=== PATIENT | male | born 1980 | race Caucasian/White ===

== ENCOUNTER 2016-11-10 21:12 | Emergency (ER) | payer OTHER ==
[~2016-11-10] VITALS: Ht 172.7 cm; Wt 68.0 kg
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
[2016-11-10] MEDS ORDERED: LORAZEPAM 1 MG TABLET ONE (21:56)
[2016-11-10] MEDS ORDERED: CEPHALEXIN MONOHYDRATE 500 MG CAPSULE PO ONE ×2 (21:57→22:00)
[2016-11-10] MEDS ORDERED: ONDANSETRON 4 MG TAB.RAPDIS ONE (21:57)
[2016-11-10] MEDS ORDERED: SULFAMETH/TRIMETH 800/160 MG 1 UDTAB TABLET PO ONE ×2 (21:57→22:00)
[2016-11-10] MEDS ORDERED: ONDANSETRON 4 MG TAB.RAPDIS SL ONE (22:00)
[2016-11-10] MEDS ORDERED: LORAZEPAM 1 MG TABLET PO ONE (22:00)
--- NOTE | 2016-11-10 22:11 | NUR ---
medicated patient as ordered by Dr Suarez.
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
[2016-11-10 22:25] VITALS: BP 108/67
== END 2016-11-10 22:26 ==
LOC: ER 21:14
DX: L03.113 Cellulitis of right upper limb (principal); L30.9 Dermatitis, unspecified; R00.0 Tachycardia, unspecified; F12.10 Cannabis abuse, uncomplicated; F10.10 Alcohol abuse, uncomplicated; F17.200 Nicotine dependence, unspecified, uncomplicated; G43.909 Migraine, unspecified, not intractable, without status migrainosus; J45.909 Unspecified asthma, uncomplicated; I10 Essential (primary) hypertension; Z72.0 Tobacco use; Z59.0 Homelessness
CPT/HCPCS: A4606; Q0162; Z7610

== ENCOUNTER 2016-12-03 19:31 | Emergency (ER) | payer MEDICAID ==
[~2016-12-03] VITALS: Ht 182.9 cm; Wt 83.9 kg
--- NOTE | 2016-12-03 19:42 | NUR ---
BB RA; "CHRONIC BODY PAIN" PT AOX3 RR EVEN AND UNLABORED. NO SOB NOTED. NAD NOTED. NO NVD AT THIS TIME. PT NOT DIAPHORETIC. PT WAITING FOR MD CARTER.
[2016-12-03 20:19] LABS: BASOPHILS # (AUTO) 0.1 /CMM (0.0-0.2); BASOPHILS % (AUTO) 1.2 % (0.0-2.0); EOSINOPHILS # (AUTO) 0.2 /CMM (0.0-0.7); EOSINOPHILS % (AUTO) 2.9 % (0.0-6.0); HEMATOCRIT 38 % (39-51); HEMOGLOBIN 12.7 g/dL (13.5-17.5); LYMPHOCYTES # (AUTO) 2.3 /CMM (0.8-4.8); LYMPHOCYTES % (AUTO) 30.5 % (20.0-44.0); MEAN CORPUSCULAR HEMOGLOBIN 32 PG (26.0-33.0); MEAN CORPUSCULAR HGB CONC 33 g/dl (31.0-36.0); MEAN CORPUSCULAR VOLUME 96 fL (80-96); MONOCYTES # (AUTO) 0.9 /CMM (0.1-1.30); MONOCYTES % (AUTO) 11.3 % (2.0-12.0); NEUTROPHILS # (AUTO) 4.1 /CMM (1.8-8.9); NEUTROPHILS % (AUTO) 54.1 % (43.0-81.0); PLATELET COUNT (AUTO) 171 /CMM (150-450); RDW COEFFICIENT OF VARIATION 12.6 (11.5-15.0); WHITE BLOOD COUNT (AUTO) 7.6 K/uL (4.3-11.0)
--- NOTE | 2016-12-03 20:19 | NUR ---
PT TO RADIOLOGY FOR CT.
[2016-12-03 20:27] LABS: APPEARANCE,URINE CLEAR (CLEAR); BILIRUBIN,URINE NEGATIVE (NEGATIVE); BLOOD, URINE NEGATIVE Ery/uL (NEGATIVE); COLOR,URINE YELLOW (YELLOW); KETONES,URINE NEGATIVE (NEGATIVE); LEUKOCYTE ESTERASE ,URINE TRACE (NEGATIVE); NITRITE, URINE NEGATIVE (NEGATIVE); PROTEIN,URINE NEGATIVE (NEGATIVE); UGLUCOSE NEGATIVE (NEGATIVE); UROBILINOGEN,URINE 0.2 EU/dL (0.2)
--- NOTE | 2016-12-03 20:32 | NUR ---
PT RETURNED FROM CT.
[2016-12-03 20:38] LABS: CALCIUM, SERUM 8.2 mg/dL (8.5-10.1); CREATININE 0.7 mg/dL (0.6-1.3); POTASSIUM 4.1 mmol/L (3.5-5.1)
[2016-12-03 21:07] LABS: BACTERIA,URINE Rare /HPF (None Seen); RBC,URINE 0-2 /HPF (0-2); SQUAMOUS EPITHELIAL CELL,UR Few /HPF (None Seen); WBC,URINE 0-2 /HPF (0-3)
--- NOTE | 2016-12-03 21:23 | NUR ---
D/C PT ON BEHALF OF PRIMARY NURSE VERO. Patient discharged to home in stable condition. Written and verbal after care instructions given. Patient verbalizes understanding of instruction. IV removed. Catheter intact and site benign. Pressure and 4x4 applied to site. No bleeding noted. Ambulatory with a steady gait
[2016-12-03 21:25] VITALS: BP 117/85
[2016-12-06 00:13] LABS: *NEISSERIA GONORRHOEAE NAA Negative (Negative); CHLAMYDIA TRACHOMATIS NAA Negative (Negative)
== END 2016-12-03 21:26 | disposition home or self-care (01) ==
LOC: ER 19:34
DX: N39.0 Urinary tract infection, site not specified (principal); F10.20 Alcohol dependence, uncomplicated; I10 Essential (primary) hypertension; J45.909 Unspecified asthma, uncomplicated; Z59.0 Homelessness
CPT/HCPCS: 36415; 80048-TC; 81000-TC; 85025-TC; 87491; 87591; A4606; G0480; J0696; J2405; J3490; J7030; Z7610

== ENCOUNTER 2016-12-03 23:46 | Emergency (ER) | payer OTHER, MEDICAID ==
[~2016-12-03] VITALS: Ht 177.8 cm; Wt 81.6 kg
[2016-12-03 23:51] VITALS: BP 119/71
== END 2016-12-04 00:31 ==
LOC: ER 23:49
DX: Z02.89 Encounter for other administrative examinations (principal); J45.909 Unspecified asthma, uncomplicated; I10 Essential (primary) hypertension; G40.909 Epilepsy, unspecified, not intractable, without status epilepticus
CPT/HCPCS: A4606; Z7610

== ENCOUNTER 2018-03-01 10:09 | Emergency (ER) | payer MEDICAID, OTHER ==
[~2018-03-01] VITALS: Ht 182.9 cm; Wt 86.2 kg
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
--- NOTE | 2018-03-01 10:32 | NUR ---
PHLEB AT BEDSIDE FOR LAB DRAW
[2018-03-01 10:39] LABS: BASOPHILS # (AUTO) 0.1 /CMM (0.0-0.2); BASOPHILS % (AUTO) 0.8 % (0.0-2.0); EOSINOPHILS % (AUTO) 0.7 % (0.0-6.0); HEMATOCRIT 42 % (39-51); HEMOGLOBIN 14.1 g/dL (13.5-17.5); LYMPHOCYTES # (AUTO) 2.1 /CMM (0.8-4.8); LYMPHOCYTES % (AUTO) 29.2 % (20.0-44.0); MEAN CORPUSCULAR HGB CONC 34 g/dl (31.0-36.0); MEAN CORPUSCULAR VOLUME 99 fL (80-96); MONOCYTES # (AUTO) 0.8 /CMM (0.1-1.30); MONOCYTES % (AUTO) 10.9 % (2.0-12.0); NEUTROPHILS # (AUTO) 4.2 /CMM (1.8-8.9); NEUTROPHILS % (AUTO) 58.4 % (43.0-81.0); PLATELET COUNT (AUTO) 261 /CMM (150-450); WHITE BLOOD COUNT (AUTO) 7.3 K/uL (4.3-11.0)
--- NOTE | 2018-03-01 10:43 | NUR ---
RADIOLOGY AT BEDSIDE FOR EKG
[2018-03-01 10:52] LABS: CREATININE 0.6 mg/dL (0.6-1.3); POTASSIUM 4.3 mmol/L (3.5-5.1)
--- NOTE | 2018-03-01 11:51 | NUR ---
PT. VERBALIZED UNDERSTANDING OF AFTERCARE INSTRUCTIONS.Patient discharged to home in stable condition. Ambulatory with steady gait. Written and verbal after care instructions given. Patient verbalizes understanding of instruction.
[2018-03-01 11:52] VITALS: BP 126/84
[2018-03-01] MEDS ORDERED: ACETAMINOPHEN ES 500 MG TABLET PO ONE (12:00)
== END 2018-03-01 11:53 | disposition home or self-care (01) ==
LOC: ER 10:12
DX: S51.812A Laceration without foreign body of left forearm, initial encounter (principal); G43.909 Migraine, unspecified, not intractable, without status migrainosus; I10 Essential (primary) hypertension; J45.909 Unspecified asthma, uncomplicated; Z59.0 Homelessness; Y04.0XXA Assault by unarmed brawl or fight, initial encounter; Y93.89 Activity, other specified; Y92.89 Other specified places as the place of occurrence of the external cause; Y99.8 Other external cause status
CPT/HCPCS: 36415; 71045; 80048; 85025; 99284; A4606; A6403; Z7610

== ENCOUNTER 2018-04-16 01:58 | Emergency (ER) | payer MEDICAID, OTHER ==
[~2018-04-16] VITALS: Ht 193 cm; Wt 83.9 kg
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
[2018-04-16 02:36] LABS: BASOPHILS # (AUTO) 0.1 /CMM (0.0-0.2); BASOPHILS % (AUTO) 0.8 % (0.0-2.0); EOSINOPHILS % (AUTO) 1.6 % (0.0-6.0); HEMATOCRIT 39 % (39-51); HEMOGLOBIN 13.3 g/dL (13.5-17.5); LYMPHOCYTES # (AUTO) 2.5 /CMM (0.8-4.8); LYMPHOCYTES % (AUTO) 37.4 % (20.0-44.0); MEAN CORPUSCULAR HGB CONC 34 g/dl (31.0-36.0); MEAN CORPUSCULAR VOLUME 98 fL (80-96); MONOCYTES % (AUTO) 14.1 % (2.0-12.0); NEUTROPHILS # (AUTO) 3.1 /CMM (1.8-8.9); NEUTROPHILS % (AUTO) 46.1 % (43.0-81.0); PLATELET COUNT (AUTO) 214 /CMM (150-450); RED BLOOD CELL COUNT(AUTO) 4.01 MIL/uL (4.5-6.0); WHITE BLOOD COUNT (AUTO) 6.8 K/uL (4.3-11.0)
[2018-04-16 02:43] LABS: ALBUMIN 3.7 g/dL (3.4-5.0); BILIRUBIN,DIRECT 0.1 mg/dL (0.0-0.2); BILIRUBIN,TOTAL 0.2 mg/dL (0.2-1.0); CALCIUM, SERUM 8.4 mg/dL (8.5-10.1); CREATININE 0.6 mg/dL (0.6-1.3); POTASSIUM 4.4 mmol/L (3.5-5.1); TOTAL PROTEIN, SERUM 7.6 g/dL (6.4-8.2)
[2018-04-16 02:44] LABS: SALICYLATE 2.6 mg/dL (2.8-20.0)
--- NOTE | 2018-04-16 04:00 | NUR ---
pt asleep kept clean and dry, all needs attended, sitter at bedside, vs stable.
[2018-04-16 05:17] LABS: APPEARANCE,URINE CLEAR (CLEAR); BILIRUBIN,URINE NEGATIVE (NEGATIVE); BLOOD, URINE NEGATIVE Ery/uL (NEGATIVE); COLOR,URINE YELLOW (YELLOW); KETONES,URINE NEGATIVE (NEGATIVE); LEUKOCYTE ESTERASE ,URINE NEGATIVE (NEGATIVE); NITRITE, URINE NEGATIVE (NEGATIVE); PH,URINE 5.5 (5.0-8.0); PROTEIN,URINE NEGATIVE (NEGATIVE); UGLUCOSE NEGATIVE (NEGATIVE); UROBILINOGEN,URINE 0.2 EU/dL (0.2)
--- NOTE | 2018-04-16 06:31 | NUR ---
pt note asleep, easily arouseable, appears comfortable, safety precaution continued.
--- NOTE | 2018-04-16 07:00 | NUR ---
ROSA KUMARI PAGED FOR PSYCH CONSULT, MESSAGE LEFT, AWAITING CALL BACK.
--- NOTE | 2018-04-16 07:29 | NUR ---
REC'D REPORT FROM NICK ORDAZ FOR [facility]. PT SLEEPING COMFORTABLY IN BED. EASILY AROUSED. WILL CONT TO MONITOR.
--- NOTE | 2018-04-16 08:18 | NUR ---
RESTRAINT REMOVED. MARIANGEL COULTER, [place] PT TO RESTROOM Addendum: 04/16/18 at 0852 by PITA PT STATES "FEELING MUCH BETTER", HAVE A LOT GOING ON IN MY LIFE LATELY"
--- NOTE | 2018-04-16 09:32 | NUR ---
PROVIDED BREAKFAST TRAY PER REQUEST
[2018-04-16 10:32] VITALS: BP 120/66
== END 2018-04-16 10:33 | disposition home or self-care (01) ==
LOC: ER 02:04
DX: F19.10 Other psychoactive substance abuse, uncomplicated (principal); R45.851 Suicidal ideations; G43.909 Migraine, unspecified, not intractable, without status migrainosus; R56.9 Unspecified convulsions; J45.909 Unspecified asthma, uncomplicated; I10 Essential (primary) hypertension; F10.10 Alcohol abuse, uncomplicated; Y90.7 Blood alcohol level of 200-239 mg/100 ml; Z59.0 Homelessness
CPT/HCPCS: 36415; 80048; 80076; 80305; 80307; 80329; 81001; 85025; 99283; A4606; G0480; Z7610; 81000-TC

== ENCOUNTER 2018-04-19 13:27 | Emergency (ER) | payer MEDICAID, OTHER ==
[~2018-04-19] VITALS: Ht 193 cm; Wt 88.5 kg
--- NOTE | 2018-04-19 13:52 | NUR ---
PT PRESENTED TO THE ER WITH A C/O COUGH W/ CONGESTION. PT HAS BREATH SOUNDS BILATERALLY. PT IS A SMOKER (CIGARETTES AND MARIJUANA). PT STATED THAT HE ALSO OCCASIONALLY SMOKES A PIPE. PT IS ON THE MONITOR AND CONTINUOUS PULSE OX.
--- NOTE | 2018-04-19 14:21 | NUR ---
PT REC'D A FOOD TRAY AND IS TOLERATING PO WELL.
--- NOTE | 2018-04-19 14:22 | NUR ---
HOMELESS WAIVER SIGNED AND IN THE CHART. PT REC'D INTERMEDIATE AND RESOURCE INFORMATION. Patient discharged to home in stable condition. Written and verbal after care instructions given. Patient verbalizes understanding of instruction. PT IS GETTING DRESSED AND WILL LEAVE ONCE HE HAS FINISHED EATING. VSS
--- NOTE | 2018-04-19 14:41 | NUR ---
PT AMBULATED OUT WITH A STEADY GAIT. PT HAD WEATHER APPROPRIATE CLOTHING.
[2018-04-19 14:44] VITALS: BP 125/84
== END 2018-04-19 14:45 | disposition home or self-care (01) ==
LOC: ER 13:31
DX: R05 Cough (principal); G43.909 Migraine, unspecified, not intractable, without status migrainosus; I10 Essential (primary) hypertension; J45.909 Unspecified asthma, uncomplicated; Z59.0 Homelessness
CPT/HCPCS: 71045; 99283; A4606

== ENCOUNTER 2018-04-30 01:16 | Emergency (ER) | payer MEDICAID, OTHER ==
[~2018-04-30] VITALS: Ht 190.5 cm; Wt 91.6 kg
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
--- NOTE | 2018-04-30 02:13 | NUR ---
XR LT FOOT ORDERED AND DONE.
[2018-04-30] MEDS ORDERED: IBUPROFEN 600 MG TABLET PO ONE ×2 (02:18→02:30)
--- NOTE | 2018-04-30 03:37 | NUR ---
Patient discharged to home in stable condition, xr ray results indicator fx, crutches provided with lt orthopedic shoe provided. Written and verbal after care instructions given, with rx. Patient verbalizes understanding of instruction.
[2018-04-30 03:49] VITALS: BP 123/73
== END 2018-04-30 03:51 | disposition home or self-care (01) ==
LOC: ER 01:18
DX: S92.415A Nondisplaced fracture of proximal phalanx of left great toe, initial encounter for closed fracture (principal); G43.909 Migraine, unspecified, not intractable, without status migrainosus; I10 Essential (primary) hypertension; J45.909 Unspecified asthma, uncomplicated; Z59.0 Homelessness; V09.9XXA Pedestrian injured in unspecified transport accident, initial encounter; Y93.89 Activity, other specified; Y92.89 Other specified places as the place of occurrence of the external cause; Y99.8 Other external cause status
CPT/HCPCS: 73630; 99283; A4606

== ENCOUNTER 2018-05-09 18:43 | Emergency (ER) | payer MEDICAID, OTHER ==
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
--- NOTE | 2018-05-09 18:50 | NUR ---
CALLED PT IN [place], NO RESPONSE.
--- NOTE | 2018-05-09 21:02 | NUR ---
Patient is resting comfortably in bed with eyes closed. Easily aroused. VSS
--- NOTE | 2018-05-09 23:04 | NUR ---
Patient discharged to home in stable condition. Written and verbal after care instructions given. Patient verbalizes understanding of instruction.
[2018-05-09 23:08] VITALS: BP 130/78
== END 2018-05-09 23:09 | disposition home or self-care (01) ==
LOC: ER 18:43
DX: S92.492D Other fracture of left great toe, subsequent encounter for fracture with routine healing (principal); G43.909 Migraine, unspecified, not intractable, without status migrainosus; I10 Essential (primary) hypertension; J45.909 Unspecified asthma, uncomplicated; F17.210 Nicotine dependence, cigarettes, uncomplicated; Z59.0 Homelessness; X58.XXXD Exposure to other specified factors, subsequent encounter
CPT/HCPCS: 71045-TC; 82962-TC

== ENCOUNTER 2018-07-23 18:09 | Emergency (ER) | payer OTHER, MEDICAID ==
[~2018-07-23] VITALS: Ht 193 cm; Wt 90.7 kg
[2018-07-23 18:16] VITALS: BP 110/57
[2018-07-23] MEDS ORDERED: LEVETIRACETAM (500MG) 1,000 MG in IV NS 0.9% 100 ML IV SCH (18:30)
--- NOTE | 2018-07-23 20:08 | NUR ---
IV removed. Catheter intact and site benign. Pressure and 4x4 applied to site. No bleeding noted.Patient discharged to home in stable condition. Written and verbal after care instructions given. Patient verbalizes understanding of instruction.
== END 2018-07-23 20:10 ==
LOC: ER 18:11
DX: S09.8XXA Other specified injuries of head, initial encounter (principal); R45.851 Suicidal ideations; G40.909 Epilepsy, unspecified, not intractable, without status epilepticus; G43.909 Migraine, unspecified, not intractable, without status migrainosus; I10 Essential (primary) hypertension; J45.909 Unspecified asthma, uncomplicated; F17.200 Nicotine dependence, unspecified, uncomplicated; Z59.0 Homelessness; Y04.0XXA Assault by unarmed brawl or fight, initial encounter; Y93.89 Activity, other specified; Y92.89 Other specified places as the place of occurrence of the external cause; Y99.8 Other external cause status
CPT/HCPCS: 70450; 96365; 99284; J1953; J7030

== ENCOUNTER 2019-02-03 15:50 | Emergency (ER) | payer MEDICAID, OTHER ==
[~2019-02-03] VITALS: Ht 185.4 cm; Wt 93.0 kg
[2019-02-03] MEDS ORDERED: ONDANSETRON HCL/PF 4 MG/2 ML VIAL IVP ONE (16:00)
[2019-02-03] MEDS ORDERED: IV NS 0.9% 1,000 ML BAG IV ONE (16:00)
[2019-02-03 16:16] LABS: BASOPHILS # (AUTO) 0.1 /CMM (0.0-0.2); BASOPHILS % (AUTO) 1.2 % (0.0-2.0); EOSINOPHILS % (AUTO) 1.9 % (0.0-6.0); HEMATOCRIT 39 % (39-51); HEMOGLOBIN 12.9 g/dL (13.5-17.5); LYMPHOCYTES # (AUTO) 1.8 /CMM (0.8-4.8); MEAN CORPUSCULAR HGB CONC 33 g/dl (31.0-36.0); MEAN CORPUSCULAR VOLUME 100 fL (80-96); MONOCYTES # (AUTO) 0.8 /CMM (0.1-1.30); MONOCYTES % (AUTO) 14.3 % (2.0-12.0); NEUTROPHILS % (AUTO) 51.6 % (43.0-81.0); PLATELET COUNT (AUTO) 162 /CMM (150-450); RED BLOOD CELL COUNT(AUTO) 3.93 MIL/uL (4.5-6.0); WHITE BLOOD COUNT (AUTO) 5.7 K/uL (4.3-11.0)
[2019-02-03 16:30] LABS: ALBUMIN 3.4 g/dL (3.4-5.0); BILIRUBIN,DIRECT 0.1 mg/dL (0.0-0.2); BILIRUBIN,TOTAL 0.4 mg/dL (0.2-1.0); CALCIUM, SERUM 8.5 mg/dL (8.5-10.1); CREATININE 0.6 mg/dL (0.6-1.3); POTASSIUM 4.1 mmol/L (3.5-5.1); TOTAL PROTEIN, SERUM 7.8 g/dL (6.4-8.2)
[2019-02-03] MEDS ORDERED: ONDANSETRON HCL/PF 4 MG/2 ML VIAL ONE (16:38)
--- NOTE | 2019-02-03 17:02 | NUR ---
pt transported to room 13, pt verbalized s/i to lapd officers, lapd wrote hold on patient dr miller aware, all belonging in locker, 1:1 sitter at bedside.
[2019-02-03 17:15] VITALS: BP 132/72
--- NOTE | 2019-02-03 18:47 | NUR ---
FILM REPLACEMENT ORDERER PINKY AT BEDSIDE
--- NOTE | 2019-02-03 20:44 | NUR ---
Patient given written and verbal discharge instructions. Patient verbalizes understanding of instructions. Patient is ambulatory with steady gait. Refuses offer of correction placement. Patient given list of available shelters in surrounding area.
== END 2019-02-03 21:26 | disposition home or self-care (01) ==
LOC: ER 15:51
DX: R41.82 Altered mental status, unspecified (principal); F10.129 Alcohol abuse with intoxication, unspecified; G43.909 Migraine, unspecified, not intractable, without status migrainosus; R56.9 Unspecified convulsions; I10 Essential (primary) hypertension; J45.909 Unspecified asthma, uncomplicated; F17.200 Nicotine dependence, unspecified, uncomplicated; Y90.8 Blood alcohol level of 240 mg/100 ml or more; Z59.0 Homelessness
CPT/HCPCS: 36415; 80048; 80076; 80307; 83735; 85025; 85730; 96361; 96374; 99283; J2405; G0480; J7030

== ENCOUNTER 2019-08-01 20:33 | Emergency (ER) | payer OTHER ==
[~2019-08-01] VITALS: Ht 193 cm; Wt 90.7 kg
[2019-08-01 20:58] LABS: APPEARANCE,URINE Clear (CLEAR); BILIRUBIN,URINE Negative (NEGATIVE); BLOOD, URINE Negative Ery/uL (NEGATIVE); COLOR,URINE Yellow (YELLOW); KETONES,URINE Negative (NEGATIVE); LEUKOCYTE ESTERASE ,URINE Negative (NEGATIVE); NITRITE, URINE Negative (NEGATIVE); PROTEIN,URINE Negative (NEGATIVE); UGLUCOSE Negative (NEGATIVE)
[2019-08-01 21:13] LABS: BASOPHILS # (AUTO) 0.1 /CMM (0.0-0.2); BASOPHILS % (AUTO) 1.3 % (0.0-2.0); EOSINOPHILS % (AUTO) 1.3 % (0.0-6.0); HEMATOCRIT 42 % (39-51); HEMOGLOBIN 14.5 g/dL (13.5-17.5); LYMPHOCYTES # (AUTO) 2.4 /CMM (0.8-4.8); LYMPHOCYTES % (AUTO) 45.1 % (20.0-44.0); MEAN CORPUSCULAR HGB CONC 34 g/dl (31.0-36.0); MEAN CORPUSCULAR VOLUME 96 fL (80-96); MONOCYTES # (AUTO) 0.9 /CMM (0.1-1.30); MONOCYTES % (AUTO) 17.2 % (2.0-12.0); NEUTROPHILS # (AUTO) 1.9 /CMM (1.8-8.9); NEUTROPHILS % (AUTO) 35.1 % (43.0-81.0); PLATELET COUNT (AUTO) 257 /CMM (150-450); RED BLOOD CELL COUNT(AUTO) 4.42 MIL/uL (4.5-6.0); WHITE BLOOD COUNT (AUTO) 5.4 K/uL (4.3-11.0)
[2019-08-01 21:30] LABS: ALBUMIN 3.2 g/dL (3.4-5.0); BILIRUBIN,DIRECT 0.1 mg/dL (0.0-0.2); BILIRUBIN,TOTAL 0.2 mg/dL (0.2-1.0); CREATININE 0.7 mg/dL (0.6-1.3); POTASSIUM 4.1 mmol/L (3.5-5.1); SALICYLATE 3.2 mg/dL (2.8-20.0); TOTAL PROTEIN, SERUM 7.8 g/dL (6.4-8.2)
--- NOTE | 2019-08-01 22:24 | NUR ---
PATIENT CAME TO ER BED 13 C/O SUICIDAL IDEATIONPLANS TO CUT WRIST. PATIENT IS AAOX4. NO SOB. BREATHING EVENLY AND UNLABORED ON ROOM AIR. CONNECTED TO MONITOR. PATIENT IS PLACED IN GOWN. BELONGINGS ARE REMOVED AND PLACED INTO A SAFE LOCKER. SITTER AT BEDSIDE.
[2019-08-01 22:54] LABS: LYMPHOCYTES % (MANUAL) 55 % (16-48); MONOCYTES % (MANUAL) 10 % (0-11.0)
[2019-08-01 22:55] LABS: EOSINOPHILS % (MANUAL) 2 % (0-4); NEUTROPHILS % (MANUAL) 33 (42-76)
[2019-08-02] MEDS ORDERED: ACETAMINOPHEN ES 500 MG TABLET ONE (00:16)
[2019-08-02] MEDS ORDERED: ACETAMINOPHEN ES 500 MG TABLET PO ONE (00:30)
--- NOTE | 2019-08-02 01:31 | NUR ---
PATIENT IS SLEEPING. EASILY AROUSED THROUGH TOUCH AND VOICE. BREATHING EVENLY AND UNLABORED ON ROOM AIR. CONNECTED TO MONITOR. SITTER AT BEDSIDE.
--- NOTE | 2019-08-02 03:20 | NUR ---
PATIENT IS ASLEEP. EASILY AROUSABLE THROUGH TACTILE AND STIMULI. NOT IN ANY DISTRESS. SITTER AT BEDSIDE. CONNECTED TO THE MONITOR.
[2019-08-02] MEDS ORDERED: ONDANSETRON 4 MG TAB.RAPDIS ONE (07:52)
--- NOTE | 2019-08-02 07:54 | NUR ---
ASSESSED PT ON BED AWAKE, AAOX4 NOT IN RESPIRATORY DISTRESS, V/S STABLE, KEPT RESTED AND COMFORTABLE. WILL CONTINUE TO MONITOR.
[2019-08-02] MEDS ORDERED: ONDANSETRON 4 MG TAB.RAPDIS SL ONE (08:00)
--- NOTE | 2019-08-02 10:01 | NUR ---
ER PHLEB AT BEDSIDE FOR REPEAT BLOOD ALCOHOL.
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
--- NOTE | 2019-08-02 13:08 | NUR ---
ACCEPTED AT [facility] BY DR. PERDUE AND DR JEAN-BAPTISTE PHONE # FOR REPORT: [phone] ext [phone]
--- NOTE | 2019-08-02 13:50 | NUR ---
REPORT GIVEN TO NICK POLLARD OF [facility] FOR [facility].
--- NOTE | 2019-08-02 13:57 | NUR ---
CALLED TRANSPORT ETA IS [phone] PER [facility] AT [facility].
[2019-08-02 15:29] VITALS: BP 137/81
--- NOTE | 2019-08-02 15:29 | NUR ---
REPORT GIVEN TO EMS FOR PT TRANSFER TO [facility].
== END 2019-08-02 15:30 ==
LOC: ER 20:35
DX: F10.10 Alcohol abuse, uncomplicated (principal); R45.851 Suicidal ideations; I10 Essential (primary) hypertension; R56.9 Unspecified convulsions; G43.909 Migraine, unspecified, not intractable, without status migrainosus; J45.909 Unspecified asthma, uncomplicated; F31.9 Bipolar disorder, unspecified; Y90.0 Blood alcohol level of less than 20 mg/100 ml; Z59.0 Homelessness; Z04.6 Encounter for general psychiatric examination, requested by authority
CPT/HCPCS: 36415 ×2; 80048; 80076; 80305; 80307 ×2; 80329; 81001; 85025; 99285; G0480; Q0162; 81000-TC

== ENCOUNTER 2019-09-02 08:16 | Emergency (ER) | payer OTHER ==
[~2019-09-02] VITALS: Ht 188 cm; Wt 88.5 kg
--- NOTE | 2019-09-02 08:23 | NUR ---
PT AMBULATORY TO ER BED 12 C/O RLE PAIN REDNESS AND SWELLING X 1 WEEK. NO FEVER STATES SEEN AT A DIFFERENT HOSPITAL A WEEK AGO. VSS. AWAITING MD CARTER.
--- NOTE | 2019-09-02 08:28 | NUR ---
DR GUILLERMO AT BEDSIDE FOR EVAL.
[2019-09-02] MEDS ORDERED: TDAP [DIPH/PERTUSSIS/TET] 0.5 ML VIAL IM ONE ×2 (08:30→08:57)
[2019-09-02] MEDS ORDERED: VANCOMYCIN 1 GM in IV D5W 250 ML IV ONE (08:30)
[2019-09-02 08:55] LABS: BASOPHILS # (AUTO) 0.2 /CMM (0.0-0.2); BASOPHILS % (AUTO) 3.7 % (0.0-2.0); EOSINOPHILS % (AUTO) 3.8 % (0.0-6.0); HEMATOCRIT 37 % (39-51); HEMOGLOBIN 12.3 g/dL (13.5-17.5); LYMPHOCYTES # (AUTO) 1.8 /CMM (0.8-4.8); LYMPHOCYTES % (AUTO) 28.4 % (20.0-44.0); MEAN CORPUSCULAR HGB CONC 33 g/dl (31.0-36.0); MEAN CORPUSCULAR VOLUME 96 fL (80-96); MONOCYTES # (AUTO) 0.8 /CMM (0.1-1.30); MONOCYTES % (AUTO) 12.9 % (2.0-12.0); NEUTROPHILS # (AUTO) 3.3 /CMM (1.8-8.9); NEUTROPHILS % (AUTO) 51.2 % (43.0-81.0); PLATELET COUNT (AUTO) 378 /CMM (150-450); RED BLOOD CELL COUNT(AUTO) 3.83 MIL/uL (4.5-6.0); WHITE BLOOD COUNT (AUTO) 6.5 K/uL (4.3-11.0)
[2019-09-02 09:15] LABS: CALCIUM, SERUM 8.5 mg/dL (8.5-10.1); CREATININE 0.8 mg/dL (0.6-1.3); POTASSIUM 4.5 mmol/L (3.5-5.1)
[2019-09-02 09:21] LABS: BILIRUBIN,DIRECT 0.1 mg/dL (0.0-0.2); BILIRUBIN,TOTAL 0.2 mg/dL (0.2-1.0); TOTAL PROTEIN, SERUM 8.3 g/dL (6.4-8.2)
[2019-09-02 10:24] LABS: BAND % (MANUAL) 1 % (0.0-5.0); EOSINOPHILS % (MANUAL) 1 % (0-4); LYMPHOCYTES % (MANUAL) 30 % (16-48); MONOCYTES % (MANUAL) 10 % (0-11.0); NEUTROPHILS % (MANUAL) 58 (42-76)
--- NOTE | 2019-09-02 10:43 | NUR ---
IVPatient discharged to home in stable condition. Written and verbal after care instructions given. Patient verbalizes understanding of instruction.IV removed. Catheter intact and site benign. Pressure and 4x4 applied to site. No bleeding noted.
[2019-09-02 10:48] VITALS: BP 142/80
== END 2019-09-02 10:48 | disposition home or self-care (01) ==
LOC: ER 08:22
DX: L03.115 Cellulitis of right lower limb (principal); R56.9 Unspecified convulsions; G43.909 Migraine, unspecified, not intractable, without status migrainosus; I10 Essential (primary) hypertension; J45.909 Unspecified asthma, uncomplicated; Z59.0 Homelessness
CPT/HCPCS: 36415; 76937; 80048; 80076; 85025; 87040 ×2; 90471; 90715; 96365; 99284; J3370; J7060

== ENCOUNTER 2019-09-02 18:04 | Emergency (ER) | payer OTHER ==
[~2019-09-02] VITALS: Ht 193 cm; Wt 99.8 kg
[2019-09-02] MEDS ORDERED: HYDROCODONE/APAP 5/325MG TABLET PO ONE (19:00)
[2019-09-02] MEDS ORDERED: HYDROCODONE/APAP 5/325MG TABLET ONE (19:18)
--- NOTE | 2019-09-02 19:20 | NUR ---
LUE SPLINT AND SLING APPLIED.
[2019-09-02 19:53] VITALS: BP 127/75
== END 2019-09-02 19:57 | disposition home or self-care (01) ==
LOC: ER 18:06
DX: S52.592A Other fractures of lower end of left radius, initial encounter for closed fracture (principal); S52.692A Other fracture of lower end of left ulna, initial encounter for closed fracture; I10 Essential (primary) hypertension; J45.909 Unspecified asthma, uncomplicated; G43.909 Migraine, unspecified, not intractable, without status migrainosus; G40.909 Epilepsy, unspecified, not intractable, without status epilepticus; F31.9 Bipolar disorder, unspecified; F19.10 Other psychoactive substance abuse, uncomplicated; F10.20 Alcohol dependence, uncomplicated; Y90.9 Presence of alcohol in blood, level not specified; Z59.0 Homelessness; Y04.8XXA Assault by other bodily force, initial encounter; Y93.89 Activity, other specified; Y92.89 Other specified places as the place of occurrence of the external cause; Y99.8 Other external cause status
CPT/HCPCS: 73090-TC

== ENCOUNTER 2019-09-04 02:11 | Emergency (ER) | payer OTHER ==
[~2019-09-04] VITALS: Ht 193 cm; Wt 99.8 kg
[2019-09-04] MEDS ORDERED: diphenhydrAMINE HCL 50 MG/ML VIAL ONE (02:41)
[2019-09-04] MEDS ORDERED: HALOPERIDOL LACTATE INJ 5 MG/ML VIAL ONE (02:41)
[2019-09-04] MEDS ORDERED: LORAZEPAM INJ 2 MG/ML VIAL ONE (02:42)
--- NOTE | 2019-09-04 02:48 | NUR ---
PT ATTEMPTED TO LEAVE FACILITY, PER DR. CALVERT PT IS SUICIDAL AND HOMICIDAL. PT IS NOT ALLOWED TO LEAVE. CALLED RAKAN DELAROSA, PT WAS ASSISTED BACK TO [facility], PATIENT PLACED ON BED 9
--- NOTE | 2019-09-04 02:50 | NUR ---
PATIENT PLACED ON TURNER IN.
[2019-09-04] MEDS ORDERED: diphenhydrAMINE HCL 50 MG/ML VIAL IM ONE (03:00)
[2019-09-04] MEDS ORDERED: HALOPERIDOL LACTATE INJ 5 MG/ML VIAL IM ONE (03:00)
[2019-09-04] MEDS ORDERED: LORAZEPAM INJ 2 MG/ML VIAL IV ONE (03:00)
--- NOTE | 2019-09-04 03:08 | NUR ---
PATIENT WHEELED TO CT ON [facility] BY [employer].
[2019-09-04 03:09] LABS: BASOPHILS # (AUTO) 0.1 /CMM (0.0-0.2); BASOPHILS % (AUTO) 1.1 % (0.0-2.0); EOSINOPHILS % (AUTO) 1.9 % (0.0-6.0); HEMATOCRIT 34 % (39-51); HEMOGLOBIN 11.3 g/dL (13.5-17.5); LYMPHOCYTES # (AUTO) 2.4 /CMM (0.8-4.8); LYMPHOCYTES % (AUTO) 28.9 % (20.0-44.0); MEAN CORPUSCULAR HGB CONC 34 g/dl (31.0-36.0); MEAN CORPUSCULAR VOLUME 95 fL (80-96); MONOCYTES # (AUTO) 1.7 /CMM (0.1-1.30); MONOCYTES % (AUTO) 20.8 % (2.0-12.0); NEUTROPHILS # (AUTO) 3.9 /CMM (1.8-8.9); NEUTROPHILS % (AUTO) 47.3 % (43.0-81.0); PLATELET COUNT (AUTO) 375 /CMM (150-450); RED BLOOD CELL COUNT(AUTO) 3.55 MIL/uL (4.5-6.0); WHITE BLOOD COUNT (AUTO) 8.1 K/uL (4.3-11.0)
[2019-09-04 03:36] LABS: CALCIUM, SERUM 7.9 mg/dL (8.5-10.1); CREATININE 0.8 mg/dL (0.6-1.3); POTASSIUM 4.3 mmol/L (3.5-5.1)
[2019-09-04 03:42] LABS: BILIRUBIN,TOTAL 0.2 mg/dL (0.2-1.0); SALICYLATE 2.1 mg/dL (2.8-20.0); TOTAL PROTEIN, SERUM 8.3 g/dL (6.4-8.2)
[2019-09-04 04:13] LABS: EOSINOPHILS % (MANUAL) 1 % (0-4); LYMPHOCYTES % (MANUAL) 21 % (16-48); MONOCYTES % (MANUAL) 16 % (0-11.0); NEUTROPHILS % (MANUAL) 62 (42-76)
[2019-09-04 04:45] LABS: APPEARANCE,URINE Clear (CLEAR); BILIRUBIN,URINE Negative (NEGATIVE); BLOOD, URINE Negative Ery/uL (NEGATIVE); COLOR,URINE Light yellow (YELLOW); KETONES,URINE Negative (NEGATIVE); LEUKOCYTE ESTERASE ,URINE Negative (NEGATIVE); NITRITE, URINE Negative (NEGATIVE); PROTEIN,URINE Negative (NEGATIVE); UGLUCOSE Negative (NEGATIVE); UROBILINOGEN,URINE 0.2 EU/dL (0.2)
--- NOTE | 2019-09-04 04:46 | NUR ---
PATIENT'S RESTRAINTS REMOVED TO CHECK FOR PERFUSION. PATIENT'S RADIAL PULSES BOTH EQUAL AND STRONG. PATIENT'S SKIN COLOR IS CONSISTENT WITH NO SIGNS OF POOR CIRCULATION.
--- NOTE | 2019-09-04 06:13 | NUR ---
PATIENT'S RESTRAINTS REMOVED TO CHECK FOR ADEQUATE CIRCULATION. RADIAL PULSES EQUAL AND STRONG BILATERALLY. NO SKIN DISCOLORATION NOTED.
--- NOTE | 2019-09-04 06:15 | NUR ---
PATIENT IS SLEEPING. EASILY AROUSABLE. BREATHING EVENLY AND UNLABORED ON ROOM AIR. CONNECTED TO MONITOR. NO SOB. CONNECTED TO MONITOR. SITTER AT BEDSIDE.
--- NOTE | 2019-09-04 08:15 | NUR ---
Transfer care to vt by Edis RN ,patient eye close arousable ,vitals taken and filed non Sob continue to monitor sitter @ bedside
--- NOTE | 2019-09-04 08:53 | NUR ---
Dr. Crenshaw at bedside for reevaluation. Wound irrigation/care performed to 1cm forehead laceration and dermabond applied by Dr. Crenshaw for laceration repair. Pt provided with drinks. Will continue with plan of care to observe and for PET eval once more awake.
[2019-09-04] MEDS ORDERED: ACETAMINOPHEN ES 500 MG TABLET ONE (10:27)
[2019-09-04] MEDS ORDERED: ACETAMINOPHEN ES 500 MG TABLET PO ONE (10:30)
--- NOTE | 2019-09-04 10:31 | NUR ---
Patient awake watching TV given tylenol 1 gm. note he follows command @ this time .
--- NOTE | 2019-09-04 13:42 | NUR ---
Patient awake alert ambulatory agrees to follow up PMD in 2 days patient Declined fpc @ this time he signed the fpc refusal .
[2019-09-04 13:45] VITALS: BP 145/56
== END 2019-09-04 13:45 | disposition home or self-care (01) ==
LOC: ER 02:13
DX: S01.81XA Laceration without foreign body of other part of head, initial encounter (principal); R45.851 Suicidal ideations; F17.210 Nicotine dependence, cigarettes, uncomplicated; G43.909 Migraine, unspecified, not intractable, without status migrainosus; I10 Essential (primary) hypertension; J45.909 Unspecified asthma, uncomplicated; F32.9 Major depressive disorder, single episode, unspecified; Z59.0 Homelessness; X78.1XXA Intentional self-harm by knife, initial encounter; Y93.89 Activity, other specified; Y92.89 Other specified places as the place of occurrence of the external cause; Y99.8 Other external cause status
CPT/HCPCS: 12011; 36415; 70450; 80048; 80076; 80305; 80307; 80329; 81001; 85025; 96372 ×2; 96374; 99285; 99406; A6403; G0480; J1200; J1630; J2060; 81000-TC

== ENCOUNTER 2019-11-26 21:15 | Emergency (ER) | payer OTHER ==
[~2019-11-26] VITALS: Ht 185.4 cm; Wt 98.0 kg
[2019-11-26] MEDS ORDERED: IV NS 0.9% 1,000 ML BAG IV ONE (21:30)
[2019-11-26 21:42] LABS: BASOPHILS % (AUTO) 0.7 % (0.0-2.0); EOSINOPHILS % (AUTO) 4.3 % (0.0-6.0); HEMATOCRIT 37 % (39-51); HEMOGLOBIN 12.3 g/dL (13.5-17.5); LYMPHOCYTES # (AUTO) 3.2 /CMM (0.8-4.8); LYMPHOCYTES % (AUTO) 48.6 % (20.0-44.0); MEAN CORPUSCULAR HGB CONC 33 g/dl (31.0-36.0); MEAN CORPUSCULAR VOLUME 93 fL (80-96); MONOCYTES # (AUTO) 0.5 /CMM (0.1-1.30); MONOCYTES % (AUTO) 7.2 % (2.0-12.0); NEUTROPHILS # (AUTO) 2.6 /CMM (1.8-8.9); NEUTROPHILS % (AUTO) 39.2 % (43.0-81.0); PLATELET COUNT (AUTO) 242 /CMM (150-450); RED BLOOD CELL COUNT(AUTO) 4.01 MIL/uL (4.5-6.0); WHITE BLOOD COUNT (AUTO) 6.6 K/uL (4.3-11.0)
--- NOTE | 2019-11-26 21:43 | NUR ---
KORY FROM [facility], TO ER BED 12. INTOXICATED, ADMITS TO DRINKING 2HRS MEDIA ANALYST. BROUGHT IN FOR MULTIPLE COMPLAINTS - SUICIDAL IDEATION W/ PLAN TO CUT HIS WRIST. CLAIMS TO HAVE HAD AN EPISODE OF UNWITNESSED SEIZURE. PT IS ALSO NOTED WITH R HAND SWELLING. PT DENIES HI. PT GOWN AND BELONGINGS PLACED IN LOCKER. 1:1 SITTER AT BEDSIDE. AWAITING MD FOR EVAL. IV LINE ESTABLISHED ON L HAND 18G. BLOOD DRAWN AND GIVEN TO SILVER RECOVERY OPERATOR AT BEDSIDE.
[2019-11-26 21:54] LABS: CALCIUM, SERUM 7.7 mg/dL (8.5-10.1); POTASSIUM 3.8 mmol/L (3.5-5.1)
[2019-11-26 22:02] LABS: BILIRUBIN,DIRECT 0.1 mg/dL (0.0-0.2)
[2019-11-26 22:03] LABS: SALICYLATE 2.8 mg/dL (2.8-20.0); TOTAL PROTEIN, SERUM 7.1 g/dL (6.4-8.2)
[2019-11-26 22:15] LABS: BILIRUBIN,TOTAL 0.2 mg/dL (0.2-1.0)
[2019-11-26 22:30] LABS: ALBUMIN 2.9 g/dL (3.4-5.0); CREATININE 0.7 mg/dL (0.6-1.3)
--- NOTE | 2019-11-26 23:18 | NUR ---
PT IN BED SLEEPING. NAD NOTED.
[2019-11-27 01:04] LABS: APPEARANCE,URINE CLEAR (CLEAR); BILIRUBIN,URINE NEGATIVE (NEGATIVE); BLOOD, URINE NEGATIVE Ery/uL (NEGATIVE); COLOR,URINE YELLOW (YELLOW); KETONES,URINE NEGATIVE (NEGATIVE); LEUKOCYTE ESTERASE ,URINE NEGATIVE (NEGATIVE); NITRITE, URINE NEGATIVE (NEGATIVE); PH,URINE 5.5 (5.0-8.0); PROTEIN,URINE NEGATIVE (NEGATIVE); UGLUCOSE NEGATIVE (NEGATIVE); UROBILINOGEN,URINE 0.2 EU/dL (0.2)
--- NOTE | 2019-11-27 01:04 | NUR ---
PT PEEING IN URINAL. VSS.
--- NOTE | 2019-11-27 02:46 | NUR ---
PT ASLEEP. RESTING COMFORTABLY.
--- NOTE | 2019-11-27 03:26 | NUR ---
Patient is resting comfortably in bed with eyes closed. Easily aroused. VSS.
--- NOTE | 2019-11-27 05:28 | NUR ---
PT RESTING COMFORTABLY IN BED. VITAL SIGNS STABLE. NO ACUTE DISTRESS NOTED AT THIS TIME. SITTER STILL AT BEDSIDE, WILL CONTINUE TO MONITOR
--- NOTE | 2019-11-27 05:29 | NUR ---
Patient is resting comfortably in bed with eyes closed. Easily aroused. VSS.
--- NOTE | 2019-11-27 07:16 | NUR ---
PT REMAINS ASLEEP. VSS.
--- NOTE | 2019-11-27 09:00 | NUR ---
Patient asleep but arousable and back to sleep vitals taken and filed sitter @ bedside
--- NOTE | 2019-11-27 11:30 | NUR ---
PT IS AWAKE AND ALERT, AAOX4 AND HE STATED HE IS NOT SUICIDAL AND WANTS TO BE DISCAHRGED. AWARE.
--- NOTE | 2019-11-27 11:35 | NUR ---
IV removed. Catheter intact and site benign. Pressure and 4x4 applied to site. No bleeding noted. Patient discharged to home in stable condition. Written and verbal after care instructions given. Patient verbalizes understanding of instruction.
--- NOTE | 2019-11-27 11:35 | NUR ---
Patient given written and verbal discharge instructions. Patient verbalizes understanding of instructions. Patient is ambulatory with steady gait. Refuses offer of care home placement. Patient given list of available shelters in surrounding area.
[2019-11-27 11:36] VITALS: BP 132/81
== END 2019-11-27 11:37 | disposition home or self-care (01) ==
LOC: ER 21:16
DX: F10.10 Alcohol abuse, uncomplicated (principal); R45.851 Suicidal ideations; F31.9 Bipolar disorder, unspecified; G43.909 Migraine, unspecified, not intractable, without status migrainosus; I10 Essential (primary) hypertension; J45.909 Unspecified asthma, uncomplicated; Y90.6 Blood alcohol level of 120-199 mg/100 ml; Z59.0 Homelessness
CPT/HCPCS: 36415 ×2; 73130; 80048; 80076; 80305; 80307 ×2; 80329; 81001; 85025; 96360; 99285; G0480; J7030; 81000-TC

== ENCOUNTER 2020-12-09 16:43 | Emergency (ER) | payer OTHER ==
[~2020-12-09] VITALS: Ht 193 cm; Wt 108.0 kg
--- NOTE | 2020-12-09 16:43 | NUR ---
PT BIB [employer] FOR [employer]. PT C/O CHRONIC SHOULDER PAIN. PT IS AAOX4, NOT IN RESPIRATORY DISTRESS, V/S STABLE, KEPT RESTED AND COMFORTABLE. WILL CONTINUE TO MONITOR,
--- NOTE | 2020-12-09 16:53 | NUR ---
SEEN AND EXAMINED BY .
--- NOTE | 2020-12-09 17:14 | NUR ---
covid swab collected and sent to lab.
--- NOTE | 2020-12-09 17:18 | NUR ---
RT AT BEDSIDE FOR BREATHING TX.
[2020-12-09] MEDS ORDERED: predniSONE 20 MG TABLET ONE (17:20)
[2020-12-09] MEDS ORDERED: IPRATROPIUM NEB FS 0.5 MG/2.5 ML AMPUL.NEB ONE (17:21)
[2020-12-09] MEDS ORDERED: ALBUTEROL FS 2.5 MG/3 ML VIAL.NEB ONE (17:21)
[2020-12-09] MEDS ORDERED: IPRATROPIUM NEB FS 0.5 MG/2.5 ML AMPUL.NEB NEB ONE (17:30)
[2020-12-09] MEDS ORDERED: ALBUTEROL FS 2.5 MG/3 ML VIAL.NEB NEB ONE (17:30)
[2020-12-09] MEDS ORDERED: predniSONE 20 MG TABLET PO ONE (17:30)
[2020-12-09] MEDS ORDERED: PRED50TA PO (18:22)
[2020-12-09] MEDS ORDERED: IBUP-1957 PO (18:22)
[2020-12-09] MEDS ORDERED: AZIT250T13 PO (18:22)
[2020-12-09] MEDS ORDERED: ALBU18HF2 INH (18:24)
[2020-12-09 18:28] VITALS: BP 131/81
--- NOTE | 2020-12-09 18:29 | NUR ---
patient ambulatory accompanied by [employer] in no distress.
== END 2020-12-09 18:29 ==
LOC: ER 16:46
DX: J44.1 Chronic obstructive pulmonary disease with (acute) exacerbation (principal); Z20.822 Contact with and (suspected) exposure to COVID-19; Z59.0 Homelessness; F31.9 Bipolar disorder, unspecified; I10 Essential (primary) hypertension; Z86.69 Personal history of other diseases of the nervous system and sense organs; M25.511 Pain in right shoulder; Z91.81 History of falling
CPT/HCPCS: 71045; 73030; 87426; 94640; 99284; C9803; J7512